=== PATIENT | male | born 1965 | race Hispanic/Latino ===

== ENCOUNTER 2021-05-30 11:27 | Outpatient (CLI) | payer OTHER ==
[2021-05-30 13:31] LABS: ABG Base Excess 2.1 mmol/L (-2.0-3.0); ABG HCO3 24.3 mmol/L (20.0-26.0); ABG Methemoglobin 0.5 % (0.0-1.5); ABG Oxygen Saturation 97.8 % (95.0-99.0); ABG PCO2 31.5 mm Hg; ABG PH 7.505 pH Units (7.350-7.450); ABG PO2 97.2 mm Hg (80.0-90.0)
[2021-05-30 14:09] LABS: Alanine Aminotransferase 27 units/L (7-56); BUN/Creatinine Ratio 11; Blood Urea Nitrogen 10 mg/dL (9-20); Chol/HDL Ratio 2.15 %; HDL Cholesterol 88 mg/dL (40-59); Hemolysis Index 3; LDL Cholesterol,Direct 106 mg/dL (50-130)
--- NOTE | 2021-05-30 14:29 | XRay Report ---
CHEST 2 VIEWS INDICATION / CLINICAL INFORMATION: J44.9 CHRONIC COUGH,WHEEZING. COMPARISON: None available. FINDINGS: SUPPORT DEVICES: None. HEART / MEDIASTINUM: No significant abnormality. LUNGS / PLEURA: No significant pulmonary or pleural abnormality. No pneumothorax. ADDITIONAL FINDINGS: No significant additional findings. IMPRESSION: 1. No acute findings. Signer Name: Gagandeep Soto MD Signed: 05/30/2021 2:25 PM Workstation Name: [id number]
== END 2021-05-30 11:28 | disposition home or self-care (01) ==
LOC: PF 11:27
PROVIDERS: ATTEND Internal Medicine
DX: J44.9 Chronic obstructive pulmonary disease, unspecified (principal)
CPT/HCPCS: 36415; 71046; 80053; 80061; 82785; 82803; 84436; 84443; 94010; 94726; 94729

== ENCOUNTER 2021-10-05 07:19 | Outpatient (CLI) | payer OTHER ==
--- NOTE | 2021-10-05 09:23 | Fluoroscopy Report ---
UPPER GI HISTORY: K21.9 GASTRO-ESOPHAGEAL REFLUX DISEASE. TECHNIQUE: Single and double contrast barium technique utilized to evaluate the esophagus, stomach, and duodenal C-loop. FINDINGS: To begin the exam, swallowing was evaluated in the lateral position under direct fluorosco py. Swallowing was normal. No mucosal irregularity, mass, mass effect, or critical stenosis. There were no abnormal tertiary c ontractions as seen with dysmotility. No hiatal hernia or gastroesophageal reflux. 2 small duodenal d iverticula project medially from the descending duodenum measuring up to 1.5 cm. IMPRESSION: 2 small duodenal diverticula are identified. Otherwise unremarkable exam. No evidence fo r hiatal hernia, reflux disease or dysmotility. Fluoroscopic time: 2.8 minutes Number of fluoroscopic images: 39 Signer Name: Joseph Fay Jr, MD Signed: 10/05/2021 9:18 AM Workstation Name: [id number]
== END 2021-10-05 07:20 | disposition home or self-care (01) ==
LOC: FLUORO 07:19
PROVIDERS: ATTEND Internal Medicine
DX: K21.9 Gastro-esophageal reflux disease without esophagitis (principal); K57.30 Diverticulosis of large intestine without perforation or abscess without bleeding
CPT/HCPCS: 74246